=== PATIENT | female | born 1960 | race Caucasian/White ===

== ENCOUNTER 2018-03-11 10:59 | Emergency (ER) | payer MEDICAID ==
[~2018-03-11] VITALS: Ht 149.9 cm; Wt 96.8 kg
[2018-03-11 11:15] VITALS: BP 126/71
[2018-03-11 12:15] VITALS: BP 118/65
== END 2018-03-11 12:15 | disposition home or self-care (01) ==
LOC: MED 10:59
DX: R04.0 Epistaxis (principal); Z88.0 Allergy status to penicillin
CPT/HCPCS: 82948; 99283

== ENCOUNTER 2024-02-17 14:54 | Emergency (ER) | payer MEDICARE, OTHER ==
[~2024-02-17] VITALS: Ht 149.9 cm; Wt 88.9 kg
[2024-02-17 15:07] VITALS: BP 126/60; PULSE 82; RESP 18; TEMP 98
[2024-02-17] MEDS: PHENYLEPHRINE 1% 15 ML BTL NS ONE (15:56)
[2024-02-17 16:34] VITALS: BP 126/60; PULSE 82; RESP 18; TEMP 98
[2024-02-17] MEDS: ACETAMINOPHEN EXTRA STRENGTH 500 MG TAB PO ONE (16:36)
== END 2024-02-17 16:20 | disposition home or self-care (01) ==
LOC: MED 14:54
DX: R04.0 Epistaxis (principal); E11.9 Type 2 diabetes mellitus without complications; I10 Essential (primary) hypertension; Z98.890 Other specified postprocedural states; Z88.0 Allergy status to penicillin
CPT/HCPCS: 99283